=== PATIENT | female | born 1960 ===

== ENCOUNTER 2025-05-15 10:16 | Outpatient (AMB) | payer MEDICARE, SELFPAY ==
--- OUTSIDE RECORDS SUMMARY | 2025-05-15 11:22 | XMS_ITS ---
Author Name [facility] Organization Unknown Care Team Organization Name Specialty Phone Email Start Date End Da mackenzie [facility] Adam Primary Care 01/26/2023 05/09/2024
--- OUTSIDE RECORDS SUMMARY | 2025-05-15 11:22 | XMS_ITS | Clinical Summary ---
Author Organization [address] Address [address] [place] [phone] Phone Care Team Providers Care Yoker Machine Operator Name Role Phone Jacquie Adam MD Primary Care Provider [phone] Allergies Active Allergy Reactions Criticality Noted Date Comments Latex Itching Medium 04/05/2009 Other Reaction(s): Rash/Dermatitis Levonorgestrel-Ethinyl Estrad 11/16/2017 Seasonal Allergies Medications UNABLE TO FIND Allergy Injection (ALLERGY MONTHLY INJECTION, HISTORIC) Inject as directed. Active calcium carbonate-vitam in D3 600 mg-5 mcg (200 unit) per tablet 1 TABLET DAILY Acti ve clobetasoL (TEMOVATE) 0.05 % ointment Apply to arms and legs Twice a day for two weeks, break one week. Repeat as necessary 4 Active fluticasone propionate (FLONASE) 50 mcg/actuation nasal spray 1 Iroquois by Nasal route daily. 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 NO FUTURE PPD. Obesity (BMI 30-39.9) 05/15/2014 Allergy 02/25/2013 HTN (hypertension) 05/15/2011 Depression 01/01/2009 Psoriasis 01/01/2009 Encounters Date Type Department Care Team Description 04/17/2025 3:30 PM EDT Office Visit Adult Medicine [address] [address] Jacquie Adam MD Pre-diabetes (Primary Dx); Primary hypertension; History of RSV infection from Last 3 Months Immunizations Name Administration Dates Next Due Influenza Quadravalent, MDCK , 0.5ml, preservative free (Flucelvax) 6mo and older 06/11/2022,06/20/2021,06/14/2020,05/24 Influenza trivalent, 0.5mL ( Fluad) 65yo and older 06/19/2023 Influenza, Unspecified 06/19/2017 Pfizer (ages 12 & older) Biv alent, COVID-19 06/24/2022 Pfizer SARS-CoV-2 COVID-19, mRNA, LNP-S, preservative free 09/06/2021 Pneumococcal conjugate 20 va lent (Prevnar 20, PCV 20) 2mo and older 06/19/2023 Pneumococcal polysaccharide 23 valent (Pneumovax 23) 2yo and older 05/20/2018 Tdap Tetanus diptheria acell ular pertussis (Boostrix; Adacel) 7yo and older 06/20/2021,11/07/2009 Zoster recombinant (Shingrix ) 19yo and older 10/02/2021,07/18/2021 Surgical History Surgery Date Site/Laterality Comments COLONOSCOPY 04/05/09 PROCEDURE: SD COLONOSCOPY STOMA DX INCLUDING COLLJ SPEC SPX; COMMENT: Up to cecum, good preparation, normal colon exam Medical History Medical History Date Comments Psoriasis 01/01/2009 DX:Psoriasis HTN (hypertension) 05/15/2011 DX:HTN (hyper tension) Allergic state 02/25/2013 DX:Allergic stat e Abnormal chest x-ray 06/01/2014 DX:Abnormal chest x-ray PPD positive 06/01/2014 DX:PPD positive; COMMENT: Negative T spot test 05/2014. NO FUTURE PPD. Hyperglycemia 03/28/2015 DX:Hyperglycemia Family History Medical History Relation Name Comments Heart attack Father age 57 Other: some type of ca, young Mother Other: smoker Paternal Grandfather Hypertension Paternal Grandmother Stroke Paternal Grandmother Relation Name Status Comments Father Mother Paternal Grandfather Paternal Grandmother Social History Tobacco Use Types Packs/Day Years Used Date Smoking Tobacco: Former Smokeless Tobacco: Never Tobacco Cessation:Counseling Given: Not Answered Alcohol Use Standard Drinks/Week Comments Yes 0 (1 standard drink = 0.6 oz pur e alcohol) Comments Unknown Sex and Gender Information Value Date Recorded Sex Assigned at Not on file Legal Sex Female 5:35 PM EST Gender Identity Not on file Sexual Orientation Not on file Obstetrics History Last Filed Vital Signs Vital Sign Reading Time Taken Comments Blood Pressure 122/82 04/17/2025 3:56 PM EDT Pulse 76 04/17/2025 3:56 PM EDT Temperature 36.4 C (97.6 F) 04/17/2025 3:56 PM EDT Respiratory Rate 14 04/17/2025 3:56 PM EDT Oxygen Saturation 96% 04/17/2025 3:56 PM EDT Inhaled Oxygen Concentration - - Weight 72.1 kg (159 lb) 04/17/2025 3:56 PM EDT Height 159.4 cm (5' 2.75 ) 04/17/2025 3:56 PM ED T Body Mass Index 28.39 04/17/2025 3:56 PM EDT Plan of Treatment Upcoming Encounters Date Type Department Care Team (Late st Contact Info) Description 10/18/2025 9:00 AM EST Office Visit Adult Medicine [facility] [address] [place] [address] Jacquie Adam MD [address] [place] [address] Health Maintenance Due Date Last Done Comments Breast Cancer Screening 1960 Medicare Annual Wellness Visit 08/30/2022 Osteoporosis Screening (Bone Density Screening) 08/30/2022 Social Influencers of Health Screening 08/30/2022 Falls Risk Assessment 2023 Depression Screening 09/21/2024 COVID-19 Vaccine ( season) 2024 06/23/2024, 07/02/2023, 06/24/2022, Additional history exists Influenza Vaccine (#1) 2025 , 06/19/2023, 06/11/2022, Additional history exists Hypertension/CHF/CAD Annual BMP Blood Test 09/30/2025 09/30/2024, 12/15/2023 Cholesterol Screening (Lipid Panel) 12/14/2028 12/15/2023 Colorectal Cancer Screening: Colonoscopy 09/07/2029 09/07/2019 DTaP,Tdap,and Td Vaccines (3 - Td or Tdap) 06/20/2031 06/20/2021, 11/07/2009 RSV Immunization Adult Patients (1 - 1-dose 75+ series) 2033 Hepatitis C Screening Completed 05/06/2014 Zoster Vaccines Completed 10/02/2021, 07/18/2021 Pneumococcal Vaccine: 50+ Years Completed 06/19/2023, 05/20/2018 HIB Vaccines Aged Out No longer eligi ble based on patient's age to complete this topic HPV Vaccines Aged Out No longer eligi ble based on patient's age to complete this topic Hepatitis A Vaccines Aged Out No long er eligible based on patient's age to complete this topic Hepatitis B Vaccines Aged Out No long er eligible based on patient's age to complete this topic IPV Vaccines Aged Out No longer eligi ble based on patient's age to complete this topic MMR Vaccines Aged Out No longer eligi ble based on patient's age to complete this topic Meningococcal ACWY Vaccine Aged Out N o longer eligible based on patient's age to complete this topic Meningococcal B Vaccine Aged Out No l onger eligible based on patient's age to complete this topic RSV Immunization Patients Under 20 months Aged Out No longer eligible based on patient's age to complete this topic Varicella Vaccines Aged Out No longer eligible based on patient's age to complete this topic Procedures Procedure Name Priority Date/Time Associated Diagnosis Comments HEMOGLOBIN A1C Routine 03/16/2025 9:08 AM EDT Pre-diabetes COMPREHENSIVE METABOLIC PANEL Routine 09/30/2024 9:58 AM EST Hyperglycemia Hypertension, unspecified type LIPID PANEL Routine 12/15/2023 COLONOSCOPY Routine 09/07/2019 HEPATITIS C SCREENING Routine 05/06/2014 from Last 3 Months or Most Recently Relevant to Health Maintenance Results * Hemoglobin A1c (03/16/2025 9:08 AM EDT) Pathologist [facility] Hemoglobin A1C 6.2 <6.5 % LAB CHEMISTRY METHOD 03/16/2025 1:40 PM EDT [facility] Mean Bld Glu Estim. 131 mg/dL LAB CHEMISTRY METHOD 03/16/2025 1:40 PM EDT [facility] Blood Venous blood specimen / Unknown Venipuncture / Unknown 03/16/2025 9:08 AM EDT 03/16/2025 9:08 AM EDT Jacquie Adam MD LAB BLOOD ORDERABLES Final Resul t [facility] [address] [place] [address], [place] [phone] * (ABNORMAL) Comprehensive metabolic panel (09/30/2024 9:58 AM EST) Pathologist [facility] Sodium 136 133 - 145 mmol/L LAB CHEMISTRY METHOD 09/30/2024 12:33 PM EST [facility] Potassium 4.6 3.5 - 5.5 mmol/L LAB CHEMISTRY METHOD 09/30/2024 12:33 PM [facility] Chloride 105 96 - 110 mmol/L LAB CHEMISTRY METHOD 09/30/2024 12:33 PM [facility] CO2 28 21 - 32 mmol/L LAB CHEMISTRY METHOD 09/30/2024 12:33 PM [facility] Anion Gap 3 3 - 11 LAB CHEMISTRY METHOD 09/30/2024 12:33 PM [facility] Glucose 101(H) 70 - 100 mg/dL LAB CHEMISTRY METHOD 09/30/2024 12:33 PM [facility] BUN 16 5 - 25 mg/dL LAB CHEMISTRY METHOD 09/30/2024 12:33 PM [facility] Creatinine 0.79 0.50 - 1.10 mg/dL LAB CHEMISTRY METHOD 09/30/2024 12:33 PM [facility] eGFR 83 >=60 mL/min/1. 73m2 LAB CHEMISTRY METHOD 09/30/2024 12:33 PM [facility] Comment:Calculation based on the Chronic Kidney Disease Epidemiology Collaboration (CKD-EPI) equation refit without adjustment for race. BUN/Creatinine Ratio 20.3 LAB CHEMISTRY METHOD 09/30/2024 12:33 PM [facility] Calcium 9.3 8.5 - 10.5 mg/dL LAB CHEMISTRY METHOD 09/30/2024 12:33 PM [facility] AST (SGOT) 11 10 - 42 unit/L LAB CHEMISTRY METHOD 09/30/2024 12:33 PM [facility] ALT (SGPT) 27 10 - 60 unit/L LAB CHEMISTRY METHOD 09/30/2024 12:33 PM [facility] Alkaline Phosphatase 74 42 - 121 unit/L LAB CHEMISTRY METHOD 09/30/2024 12:33 PM [facility] Total Protein 6.9 6.0 - 8.0 g/dL LAB CHEMISTRY METHOD 09/30/2024 12:33 PM [facility] Albumin 3.8 3.2 - 5.0 g/dL LAB CHEMISTRY METHOD 09/30/2024 12:33 PM [facility] Total Bilirubin 0.4 0.0 - 1.4 mg/dL LAB CHEMISTRY METHOD 09/30/2024 12:33 PM [facility] Blood Venous blood specimen / Unknown Venipuncture / Unknown 09/30/2024 9:58 AM EST 09/30/2024 9:58 AM EST Jacquie Adam MD LAB BLOOD ORDERABLES Final Resul t [facility] [address] [place] [address], * (ABNORMAL) Lipid panel (12/15/2023) Pathologist [facility] LDL/HDL Ratio 3 0 - 4 Triglycerides 76 0 - 150 mg/dL Cholesterol 203(A) 0 - 200 mg/dL HDL 83 >=40 mg/dL LDL Cholesterol 105(A) 0 - 100 mg/dL Blood Venous blood specimen / Unknown Historical Provider LAB BLOOD ORDERABLES Yolanda l Result * Colonoscopy (09/07/2019) Pathologist [facility] Colonoscopy no interpretation , abstracted Anatomical Region Laterality Modality Other Historical Provider HEALTH MAINTENANCE Final Result * Hepatitis C Screening (05/06/2014) Pathologist [facility] Hepatitis C Screening abstracted Historical Provider HEALTH MAINTENANCE Final Result from Last 3 Months or Most Recently Relevant to Health Maintenance Insurance BLUE [employer]OSS - [place] MEDICARE ADVANTAGE Care Teams Yoker Machine Operator Relationship Specialty Start Date End Date Jacquie Adam MD [address] [place] [phone] [facility] - General 09/16/06
--- OUTSIDE RECORDS SUMMARY | 2025-05-15 11:22 | XMS_ITS | Clinical Summary ---
Author Organization [facility] Address [address] [phone] Phone Care Team Providers Care Cytology Teacher Name Role Phone Jacquie Adam MD Primary Care Provider [phone] Allergies Active Allergy Reactions Criticality Noted Date Comments Latex Itching,Rash Medium 04/05/2009 Other Reaction(s): Rash/Dermatitis Levonorgestrel-Ethinyl Estrad 11/16/2017 Seasonal Allergies Medications calcium carbonate-vitamin D3 1,500 mg (600 mg elemental)-200 units Tab 1 tablet daily. Active chlorhexidine (PERIDEX) 0.12 % solution FILL CUP TO 1/2OZ LINE SWISH IN MOUTH FOR 30 SECONDS THEN SPIT OUT TWICE DAILY AFTER BREAKFAST AND AT BEDTIME 5 Active clobetasol (TEMOVATE) 0.05 % ointment Apply to arms and legs Twice a day for two weeks, break one week. Repeat as necessary 4 Active fluticasone propionate (FLONASE) 50 mcg/actuation nasal spray 1 spray by Nasal route daily. 4 Active ibuprofen (ADVIL,MOTRIN) 600 MG tablet TAKE 1 TABLET BY MOUTH every 6 hours NEEDED FOR PAIN WITH food 5 Active ramipriL (ALTACE) 10 MG capsule Take 20 mg by mouth. 5 Active therapeutic multivitamin tablet Take 1 tablet by mouth daily. Active Active Problems Problem Noted Date Diagnosed Date Class 1 obesity 01/20/2025 Osteoporosis 01/20/2025 Pre-diabetes 10/10/2024 PPD positive 06/01/2014 Overview (01/20/2025): Negative T spot test 05/2014. NO FUTURE PPD. HTN (hypertension) 05/15/2011 Depression 01/01/2009 Psoriasis 01/01/2009 Social History Tobacco Use Types Packs/Day Years [...] on file Sexual Orientation Not on file Last Filed Vital Signs Vital Sign Reading Time Taken Comments Blood Pressure 146/82 01/20/2025 11:40 AM EDT Pulse 65 01/20/2025 11:40 AM EDT Temperature 36.8 C (98.2 F) 01/20/2025 11:40 AM EDT Respiratory Rate 17 01/20/2025 11:40 AM EDT Oxygen Saturation 99% 01/20/2025 11:40 AM EDT Inhaled Oxygen Concentration - - Weight - - Height - - Body Mass Index - - Plan of Treatment Health Maintenance Due Date Last Done Comments CREATININE LEVEL 1960 POTASSIUM LEVEL 1958 DEPRESSION SCREENING 1970 SMOKING Hx and SMOKELESS TOBACCO SCREENING 1971 HEPATITIS C SCREENING 01/20/1976 MAMMOGRAM 1998 COLOGUARD 2003 COLONOSCOPY 2003 COLORECTAL CANCER SCREENING 2003 FIT TEST 2003 FOBT 2003 SIGMOIDOSCOPY 2003 VIRTUAL COLONOSCOPY 2003 OSTEOPOROSIS SCREENING INITIAL (ONE-TIME) 2023 COVID-19 VACCINE ( season) 2024 06/23/2024, 07/02/2023, 06/24/2022, Additional history exists BLOOD PRESSURE 07/23/2025 01/20/2025 LIPID PANEL 12/14/2028 12/15/2023 Adult Td,Tdap Booster 06/20/2031 06/20/2021, 010 RSV VACCINE (1 - 1-dose 75+ series) 2033 ZOSTER VACCINES Completed 10/02/2021, 07/18/2021 PNEUMOCOCCAL VACCINES (50+ years) Completed 06/19/2023, 05/20/2018 HEPATITIS A VACCINES Aged Out No long er eligible based on patient's age to complete this topic HIB VACCINES Aged Out No longer eligi ble based on patient's age to complete this topic MENINGOCOCCAL VACCINES (ACWY) Aged Out No longer eligible based on patient's age to complete this topic MENINGOCOCCAL VACCINES (B) Aged Out N o longer eligible based on patient's age to complete this topic Medical Devices Not on file Insurance [place] BLUE REPLAC[place] [address] [place] [address] MEDICARE PPO [address] [address] [place] [address] [address]IC[address] [place] [address] MEDICARE PPO [address] [place] [place] [address] MEDICARE PPO BLUE REPLACEMENT Care Teams Cytology Teacher Relationship Specialty Start Date End Date Jacquie Adam MD [address] [place] [phone] PCP - General Internal Medicine 01/20/25 Additional Source Comments The information contained in this document represents components of the legal health record. It is not the complete legal health record.[facility]
== END 2025-05-15 14:44 | disposition home or self-care (01) ==
LOC: HO.HMGAL 10:16
PROVIDERS: Visit Provider Registered Nurse Emergency
DX: J30.89 Other allergic rhinitis (principal)
CPT/HCPCS: 95117; 95165

== ENCOUNTER 2025-06-26 10:23 | Outpatient (AMB) | payer MEDICARE, SELFPAY ==
--- OUTSIDE RECORDS SUMMARY | 2025-01-20 12:15 | XMS_ITS | Encounter Summary ---
Author Organization [facility] Address [address] [facility] [address] [place] [phone] Phone Care Team Providers Care Laydown Machine Operator Name Role Phone Jacquie Adam MD Primary Care Provider [phone] Encounter Details Date Type Department Care Team (Late st Contact Info) Description 01/20/2025 12:15 PM EDT Hospital Encounter [facility] [address] [place] [address] [phone] Eddy Vera PA-C [address] [place] [phone] [email or web address] Social History Tobacco Use Types Packs/Day Years [...] clinician's provided indication for this examination in [facility]: Cough; Cough for 2 weeks chest [...] clinician's provided indication for this examination in [facility]:Cough; Cough for 2 weeks chest congestion, [...] on filedocumented in this encounter Care Teams Laydown Machine Operator Relationship Specialty Start Date End Date Jacquie Adam MD [address] [place] [address] PCP - General Internal Medicine 01/20/25 documented as of this encounter Additional Source Comments The information contained in this document represents components of the legal health record. It is not the complete legal health record.[facility]
--- OUTSIDE RECORDS SUMMARY | 2025-06-26 12:10 | XMS_ITS | Encounter Summary ---
Author Organization [facility] Address [address] [place] [address] Care Team Providers Care Full Service Supervisor Name Role Phone Jacquie Adam MD Primary Care Provider [phone] Encounter Details Date Type Department Care Team (Late st Contact Info) Description 11/11/2024 Lab Requisition [facility] [address] [facility] [place] [phone] Arthur Mello, SHERITA [address] [place] [address] Oral mucositis (ulcerative) due to other drugs Social History Tobacco Use Types Packs/Day Years Used Date Smoking Tobacco: Former Smokeless Tobacco: Never Alcohol Use Standard Drinks/Week Comments Yes 0 (1 standard drink = 0.6 oz pur e alcohol) Comments Unknown Sex and Gender Information Value Date Recorded Sex Assigned at Not on file Legal Sex Female 5:35 PM EST Gender Identity Not on file Sexual Orientation Not on file documented as of this encounter Plan of Treatment Upcoming Encounters Date Type Department Care Team (Late st Contact Info) Description 10/18/2025 9:00 AM EST Office Visit Adult Medicine [address] [phone] Jacquie Adam MD [address] [place] [phone] documented as of this encounter Procedures Procedure Name Priority Date/Time Associated Diagnosis Comments TISSUE EXAM Routine 11/10/2024 Oral mucositis (ulcerative) due to other drugs documented in this encounter Results * Tissue Exam (11/10/2024) Final Diagnosis Oral Cavity, left buccal mucosa: -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 Recommend clinical correlation. 12:17 PM [facility] Clinical Information White (illegible) left buccal mucosa ? Lichenoid mucositis 12:17 PM [facility] Gross Description A. Oral Cavity, left buccal mucosa: Labeled with the patient's name and information. Received in formalin is a 0.7 x 0.5 x 0.2 cm irregular bravo-white rubbery mucosal tissue fragments which is inked blue, bisected, wrapped in paper, and entirely submitted in one cassette, two pieces, multiple levels on one slide. ARNULFO 12:17 PM [facility] Disclaimer NOTE: The immunohistochemical tests and in situ hybridization tests were developed and their performance characteristics were determined by [facility]. They have not been cleared or approved by the U.S. Food and Drug Administration. The FDA has determined that such clearance or approval is not necessary. These tests are used for clinical purposes. They should not be regarded as investigational or for research. This laboratory is certified under the Clinical Laboratory Improvement Amendments of 1988 (CLIA) as qualified to perform high complexity clinical laboratory testing. (controls appropriate) Unless otherwise specified, all tissue is 10% NB formalin fixed and paraffin embedded. 12:17 PM [facility] Tissue Oral cavity structure / Unknown 11/10/2024 11/11/2024 7:40 AM EST Arthur Mello DMD LAB PATHOLOGY ORDERABLES Yolanda shyam Result [facility] [address] [place] [address], documented in this encounter Visit Diagnoses Diagnosis Oral mucositis (ulcerative) due to other drugs documented in this encounter Care Teams Full Service Supervisor Relationship Specialty Start Date End Date Jacquie Adam MD [address] [place] [id number] PCP - General 09/16/06 documented as of this encounter
--- OUTSIDE RECORDS SUMMARY | 2025-06-26 12:10 | XMS_ITS | Clinical Summary ---
Author Organization [address] Address [address] [place] [phone] Phone Care Team Providers Care Rand Butter Name Role Phone Jacquie Adam MD Primary Care Provider [phone] Allergies Active Allergy Reactions Criticality Noted Date [...] propionate (FLONASE) 50 mcg/actuation nasal spray 1 [place] by Nasal route daily. 4 Active glucosamine/cho [...] 3:30 PM EDT Office Visit Adult Medicine [address] [phone] Jacquie Adam MD Pre-diabetes (Primary Dx); Primary hypertension; History of RSV infection from Last 3 Months Immunizations Immunization Administration Dates Next Due Influenza Quadravalent, MDCK [...] Surgery Date Site/Laterality Comments COLONOSCOPY 04/05/09 PROCEDURE: MA COLONOSCOPY STOMA DX INCLUDING COLLJ SPEC SPX; [...] 9:00 AM EST Office Visit Adult Medicine [facility] [address] [place] [address] Jacquie Adam MD [address] [place] [address] Health Maintenance Due Date Last Done Comments Breast Cancer Screening 1960 Medicare Annual Wellness Visit 08/30/2022 Osteoporosis Screening (Bone Density Screening) 08/30/2022 Social Influencers of Health Screening 08/30/2022 Falls Risk Assessment 2023 Depression Screening 09/21/2024 COVID-19 Vaccine ( season) 2025 06/23/2024, 07/02/2023, 06/24/2022, Additional history exists Influenza [...] Procedure Name Priority Date/Time Associated Diagnosis Comments COMPREHENSIVE METABOLIC PANEL Routine 09/30/2024 9:58 AM EST Hyperglycemia Hypertension, unspecified type LIPID PANEL Routine 12/15/2023 HM COLONOSCOPY Routine 09/07/2019 HEPATITIS C SCREENING Routine 05/06/2014 from Last 3 Months or Most Recently Relevant to Health Maintenance Results * (ABNORMAL) Comprehensive metabolic panel (09/30/2024 9:58 AM EST) Sodium 136 133 - 145 mmol/L LAB CHEMISTRY METHOD 09/30/2024 12:[address] [facility] Potassium 4.6 3.5 - 5.5 mmol/L LAB CHEMISTRY METHOD 09/30/2024 12:[address] [facility] Chloride 105 96 - 110 mmol/L LAB CHEMISTRY METHOD 09/30/2024 12:[address] [facility] CO2 28 21 - 32 mmol/L LAB CHEMISTRY METHOD 09/30/2024 12:[address] [facility] Anion Gap 3 3 - 11 LAB CHEMISTRY METHOD 09/30/2024 12:[address] [facility] Glucose 101(H) 70 - 100 mg/dL LAB CHEMISTRY METHOD 09/30/2024 12:[address] [facility] BUN 16 5 - 25 mg/dL LAB CHEMISTRY METHOD 09/30/2024 12:[address] [facility] Creatinine 0.79 0.50 - 1.10 mg/dL LAB CHEMISTRY METHOD 09/30/2024 12:[address] [facility] eGFR 83 >=60 mL/min/1. 73m2 LAB CHEMISTRY METHOD 09/30/2024 12:[address] [facility] Comment:Calculation based on the Chronic Kidney Disease Epidemiology Collaboration (CKD-EPI) equation refit without adjustment for race. BUN/Creatinine Ratio 20.3 LAB CHEMISTRY METHOD 09/30/2024 12:[address] [facility] Calcium 9.3 8.5 - 10.5 mg/dL LAB CHEMISTRY METHOD 09/30/2024 12:[address] [facility] AST (SGOT) 11 10 - 42 unit/L LAB CHEMISTRY METHOD 09/30/2024 12:[address] [facility] ALT (SGPT) 27 10 - 60 unit/L LAB CHEMISTRY METHOD 09/30/2024 12:[address] [facility] Alkaline Phosphatase 74 42 - 121 unit/L LAB CHEMISTRY METHOD 09/30/2024 12:[address] [facility] Total Protein 6.9 6.0 - 8.0 g/dL LAB CHEMISTRY METHOD 09/30/2024 12:[address] [facility] Albumin 3.8 3.2 - 5.0 g/dL LAB CHEMISTRY METHOD 09/30/2024 12:[address] [facility] Total Bilirubin 0.4 0.0 - 1.4 mg/dL LAB CHEMISTRY METHOD 09/30/2024 12:[address] [facility] Blood Venous blood specimen / Unknown Venipuncture / Unknown 09/30/2024 9:58 AM EST 09/30/2024 9:58 AM EST Jacquie Adam MD LAB BLOOD ORDERABLES Final Resul t [facility] [address] [place] [address], * (ABNORMAL) Lipid panel (12/15/2023) Pathologist [facility] LDL/HDL Ratio 3 0 - 4 Triglycerides 76 0 - 150 mg/dL Cholesterol 203(A) 0 - 200 mg/dL HDL 83 >=40 mg/dL LDL Cholesterol 105(A) 0 - 100 mg/dL Blood Venous blood specimen / Unknown Michael Ha MD LAB BLOOD ORDERABLES Yolanda l Result * Colonoscopy (09/07/2019) Pathologist [facility] Colonoscopy no interpretation , abstracted Anatomical Region Laterality Modality Other Michael Ha MD HEALTH MAINTENANCE Final Result * Hepatitis C Screening (05/06/2014) Hepatitis C Screening abstracted us Historical Provider HEALTH MAINTENANCE Final Result from Last 3 Months or Most Recently Relevant to Health Maintenance Insurance [employer] [employer] MEDICARE ADVANT[place] Care Teams Rand Butter Relationship Specialty Start Date End Date Jacquie Adam MD [address] [place] [phone] PCP - General 09/16/06
--- OUTSIDE RECORDS SUMMARY | 2025-06-26 12:10 | XMS_ITS | Clinical Summary ---
Author Organization [facility] Address [address] [phone] Phone Care Team Providers Care Brick Pitcher Name Role Phone Jacquie Adam MD Primary Care Provider [phone] Allergies Active Allergy Reactions Criticality Noted Date [...] COLONOSCOPY 2003 OSTEOPOROSIS SCREENING INITIAL (ONE-TIME) 2023 INFLUENZA VACCINE (#1) 2025 , 06/19/2023, 06/11/2022, Additional history exists COVID-19 VACCINE ( season) 2025 06/23/2024, 07/02/2023, 06/24/2022, Additional history exists BLOOD [...] [place] BLUE RE[place]ACEMENT Care Teams Brick Pitcher Relationship Specialty Start Date End Date Jacquie Adam MD [address] [place] [phone] PCP - General Internal Medicine 01/20/25 Additional Source Comments The information contained in this document represents components of the legal health record. It is not the complete legal health record.[facility]
== END 2025-06-26 10:55 | disposition home or self-care (01) ==
LOC: HO.HMGAL 10:23
PROVIDERS: PCP Internal Medicine; Visit Provider Registered Nurse Emergency
DX: J30.89 Other allergic rhinitis (principal)
CPT/HCPCS: 95117; 95165

== ENCOUNTER 2025-07-24 10:23 | Outpatient (AMB) | payer MEDICARE, SELFPAY ==
--- OUTSIDE RECORDS SUMMARY | 2025-01-20 11:15 | XMS_ITS | Encounter Summary ---
Author Organization [facility] Address [address] [facility] [address] [place] [phone] Phone Care Team Providers Care Local Hazmat Driver Name Role Phone Jacquie Adam MD Primary Care Provider [phone] Encounter Details Date Type Department Care Team (Late st Contact Info) Description 01/20/2025 12:15 PM EDT Hospital Encounter [facility] [address] [place] [address] [phone] Eddy Vera PA-C [address] [place] [phone] [email or web address] Social History Tobacco Use Types Packs/Day Years Used Date Smoking Tobacco: Never Assessed Education Answer Date Recorded Are you interested in more education? Not on chip e 01/20/2025 Are you concerned about learning? Not on file 01/20/2025 No 01/20/2025 No 01/20/2025 Digital Access Answer Date Recorded No 01/20/2025 No 01/20/2025 Reliable internet access at home? Not on file 01/20/2025 Device with a working camera? Not on file Comments Unknown Sex and Gender Information Value Date Recorded Sex Assigned at Not on file Legal Sex Female 10:34 AM EDT Gender Identity Not on file Sexual Orientation Not on file documented as of this encounter Plan of Treatment Not on file documented as of this encounter Procedures Procedure Name Priority Date/Time Associated Diagnosis Comments XR CHEST PA AND LATERAL 2 VIEWS Urgent/patient waiting 01/20/2025 12:19 PM EDT Acute bronchitis, unspecified organism documented in this encounter Results * XR CHEST PA AND LATERAL 2 VIEWS (01/20/2025 12:19 PM EDT) Anatomical Region Laterality Modality Chest Computed Radiogr aphy 01/20/2025 12:4 0 PM EDT Impressions 01/20/2025 12:41 PM EDT No acute cardiopulmonary abnormality. Narrative 01/20/2025 12:41 PM EDT XR CHEST PA AND LATERAL 2 VIEWS Referring clinician's provided indication for this examination in [facility]: Cough; Cough for 2 weeks chest congestion, non-smoker COMPARISON: None FINDINGS: Devices/Tubes/Lines: None. Lungs: No focal consolidation or pulmonary edema. Pleura: No pleural effusion or pneumothorax. Heart/Mediastinum: The size of the cardiomediastinal silhouette is within normal limits. Bones/Soft Tissues: No significant skeletal abnormality. Procedure Note Kaitlynn Osei MD - 01/20/2025 XR CHEST PA AND LATERAL 2 VIEWS Referring clinician's provided indication for this examination in [facility]:Cough; Cough for 2 weeks chest congestion, non-smoker COMPARISON: None FINDINGS: Devices/Tubes/Lines: None. Lungs: No focal consolidation or pulmonary edema. Pleura: No pleural effusion or pneumothorax. Heart/Mediastinum: The size of the cardiomediastinal silhouette is withinnormal limits. Bones/Soft Tissues: No significant skeletal abnormality. IMPRESSION: No acute cardiopulmonary abnormality. Eddy Vera PA-C IMG XR CHEST Final Re sult documented in this encounter Visit Diagnoses Not on filedocumented in this encounter Care Teams Local Hazmat Driver Relationship Specialty Start Date End Date Jacquie Adam MD [address] [place] [address] PCP - General Internal Medicine 01/20/25 documented as of this encounter Additional Source Comments The information contained in this document represents components of the legal health record. It is not the complete legal health record.[facility]
--- OUTSIDE RECORDS SUMMARY | 2025-07-24 12:25 | XMS_ITS | Clinical Summary ---
Author Organization [facility] Address [address] [phone] Phone Care Team Providers Care Traffic Workforce Representative Name Role Phone Jacquie Adam MD Primary Care Provider [phone] Allergies Active Allergy Reactions Criticality Noted Date [...] [place] Care Teams Traffic Workforce Representative Relationship Specialty Start Date End Date Jacquie Adam MD [address] [place] [phone] PCP - General Internal Medicine 01/20/25 Additional Source Comments The information contained in this document represents components of the legal health record. It is not the complete legal health record.[facility]
== END 2025-07-24 10:25 | disposition home or self-care (01) ==
LOC: HO.HMGAL 10:24
PROVIDERS: PCP Internal Medicine; Visit Provider Registered Nurse Emergency
DX: J30.89 Other allergic rhinitis (principal)
CPT/HCPCS: 95117; 95165

== ENCOUNTER 2025-08-28 11:15 | Outpatient (AMB) | payer MEDICARE, SELFPAY | END 2025-08-28 11:15 | disposition home or self-care (01) | LOC: HO.HMGAL 11:15 | PROVIDERS: PCP Internal Medicine; Visit Provider Registered Nurse Emergency | DX: J30.89 Other allergic rhinitis (principal) | CPT/HCPCS: 95117; 95165 ==